=== PATIENT | male | born 1970 | race Caucasian/White ===

== ENCOUNTER → 2017-05-22 | Outpatient (CLI) | payer BC ==
[~2017-05-22] MED LIST: AMPH20CA3 PO; IBUP-103 PO
[2017-05-22 14:03] LABS: ALBUMIN 3.7 gm/dl (3.4-5.0); BLOOD UREA NITROGEN 17 mg/dl (7-18); CALCIUM 8.7 mg/dl (8.5-10.1); CARBON DIOXIDE 28 mmol/L (21-32); GLUCOSE 90 mg/dl (70-99); PHOSPHORUS 3.6 mg/dl (2.5-4.9); POTASSIUM 4.1 mmol/L (3.5-5.1); SODIUM 139 mmol/L (136-145)
== END | disposition home or self-care (01) ==
LOC: C.LAB1850 12:03
PROVIDERS: ATTEND Internal Medicine Nephrology
DX: N20.0 Calculus of kidney (principal)

== ENCOUNTER → 2017-09-11 | Outpatient (CLI) | payer BC ==
--- NOTE | 2017-09-11 09:42 | DIAGNOSTIC IMAGING REPORT ---
ABDOMEN AND PELVIS CT WITHOUT CONTRAST CT DOSE: 1037.77 mGy.cm HISTORY: Right flank pain. Assess for stone. TECHNIQUE: Multiaxial CT images of the abdomen and pelvis were performed without the use of intravenous and oral contrast according to the standard department stone protocol. A dose lowering technique was utilized adhering to the principles of ALARA. COMPARISON STUDY: Abdomen and pelvis CT 05/11/2015. FINDINGS: Stable bone island within the left iliac wing. Degenerative changes within the lumbar spine are again noted. Tiny fat-containing umbilical hernia. Suboptimal evaluation for bowel pathology due to the lack of intravenous and oral contrast. However, there is no definite bowel wall thickening or obstruction. Normal appendix. The unenhanced liver, spleen, gallbladder, pancreas, and adrenal glands are unremarkable. No retroperitoneal lymphadenopathy. 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 This remains unchanged. Lobular soft tissue density within the left pelvic sidewall and left seminal vesicle remain stable. 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 Right-sided nephrolithiasis again noted with the largest stone within the lower pole measuring 3 mm.. No hydronephrosis. The visualized right ureter is normal in course and caliber. The bladder is unremarkable. IMPRESSION: 1. No significant change compared to the prior study. No acute process within the abdomen or pelvis. 2. No bowel wall thickening or obstruction. 3. Normal appendix. 4. Right-sided nephrolithiasis. No ureteral stones. No hydronephrosis. 5. Developmental/congenital anomalies as described above including left renal agenesis. Electronically signed by: Boubacar Ceron M.D. 09/11/2017 9:40 AM Dictated Date/Time: 09/11/2017 9:28 AM
[2017-09-11 10:13] LABS: BLOOD UREA NITROGEN 16 mg/dl (7-18); CALCIUM 8.9 mg/dl (8.5-10.1); CARBON DIOXIDE 28 mmol/L (21-32); CREATININE 0.98 mg/dl (0.60-1.40); GLUCOSE 113 mg/dl (70-99); POTASSIUM 3.8 mmol/L (3.5-5.1); SODIUM 137 mmol/L (136-145)
== END | disposition home or self-care (01) ==
LOC: C.CTS 08:48
DX: N20.0 Calculus of kidney (principal); Q60.0 Renal agenesis, unilateral

== ENCOUNTER 2017-12-03 20:16 | Emergency (ER) | payer BC ==
[~2017-12-03] VITALS: Ht 177.8 cm; Wt 82.7 kg
[2017-12-03 20:18] VITALS: TEMP 36.5; Ht 177.8 cm; Wt 82.7 kg
[2017-12-03] MEDS ORDERED: OXYCODONE HCL IR 5 MG TAB (IMMEDIATE RELEASE) PO STA (20:38)
[2017-12-03] MEDS ORDERED: LMS250 PO (21:04)
[2017-12-03] MEDS ORDERED: IBUP-103 PO (21:08)
[2017-12-03] MEDS ORDERED: LIDOCAINE 1% BUFFERED INJ 20 ML VIAL ONE (21:26)
[2017-12-03] MEDS ORDERED: BUPIVACAINE 0.25% 30 ML VIAL ONE (21:26)
[2017-12-03] MEDS ORDERED: AMPH20CA3 PO (21:49)
[2017-12-03 22:11] VITALS: BP 142/81; PULSE 60; O2SAT 97
[2017-12-03] MEDS ORDERED: OXYC-90 PO (22:25)
--- NOTE | 2017-12-03 22:26 | EMERGENCY ROOM VISIT NOTE ---
History First contact with patient: 20:24 Chief Complaint: FINGER PAIN Stated Complaint: SMASHED LEFT THUMB History of Present Illness The patient is a 47 year old male who presents to the Emergency Room with complaints of an injury to his left thumb. The patient states that approximately 7 hours ago, he smashed his left thumb in a truck door. He was seen at the [facility] emergency department and reports that they gave him IV antibiotics, a tetanus shot, cleaned his wound and bandaged it. He states that orthopedics was unable to evaluate him at that time and they recommended he follow-up on Thursday. The patient is not from that area and would rather follow- up here. He states his pain is returned and was an 12/04. He was prescribed antibiotics but nothing for pain. He has not taken any medication for his pain. He denies any numbness or weakness. Review of Systems A complete 6 point review of systems was reviewed with the patient with pertinent positives and negatives as per history of present illness. All else were negative. Past Medical/Surgical History Medical Problems: (1) Anxiety (2) Attention deficit hyperactivity disorder (3) congenital absence of kidney (4) Migraines Surgical Problems: (1) H/O hernia repair Family History Cancer Diabetes mellitus Gallbladder disease Heart disease Kidney disease Kidney stones Social History Smoking Status: Never Smoker Alcohol Use: none Marital Status: Housing Status: lives with family Occupation Status: employed, other Current/Historical Medications Scheduled Amphetamine-Dextroamphetamine 20MG (Adderall Xr 20MG), 20 MG PO DAILY Terbinafine (Terbinafine HCl), 250 MG PO DAILY Scheduled PRN Ibuprofen Tab (Advil), 800 MG PO Q6H PRN for Pain Oxycodone Ir (Roxicodone Ir), 1-2 TAB PO Q4H PRN for Pain Physical Exam Vital Signs Date Time Temp Pulse Resp B/P (MAP) Pulse Ox O2 Delivery O2 Flow Rate FiO2 12/03/17 22:11 60 20 142/81 97 Room Air 12/03/17 20:18 36.5 78 20 140/77 98 Room Air Physical Exam VITALS: Vitals are noted on the nurse's note and reviewed by myself. Vital signs stable. GENERAL: This is a 47-year-old male, in no acute distress, nondiaphoretic, well- developed well-nourished. LEFT THUMB: There is significant soft tissue injury to the anterior aspect of the distal phalanx. The fingernail is displaced laterally. There is exposed bone. There is no active bleeding. Capillary refill intact. Full range of motion. NEURO: Patient was alert and oriented to person place and time. Distal sensation intact of the left thumb. Medical Decision & Procedures Medications Administered Medications (Trade) Dose Ordered Sig/Kyaw Route Start Time Stop Time Status Last Admin Dose Admin Oxycodone HCl (Roxicodone Immediate Rel Tab) 5 mg NOW STAT PO 12/03/17 20:38 12/03/17 20:39 DC 12/03/17 20:47 5 MG Cephalexin Monohydrate (Keflex Cap) 500 mg NOW ONCE PO 12/03/17 22:30 12/03/17 22:31 DC 12/03/17 22:30 500 MG Oxycodone HCl (Roxicodone Immediate Rel 5MG Home Pack) 1 homepack UD ONCE PO 12/03/17 22:30 12/03/17 22:31 DC 12/03/17 22:30 1 HOMEPACK Procedure Verbal consent was obtained to perform the procedure. Digital block was performed using a one-to-one solution of 1% buffered lidocaine and bupivacaine. The patient tolerated the procedure well. No complications were met. Medical Decision The patient was evaluated as above. I did review x-rays from the previous ER. They reveal a comminuted fracture of the distal phalanx with overlying soft tissue injury. Fortunately patient had already been treated with IV antibiotics and Adacel. I spoke with orthopedics, Dr. Menendez, who agreed to evaluate the patient. He did perform repair of this open fracture/ laceration. Please see his dictation for these details. The patient already has a prescription for Keflex. He was given 1 dose for tonight. He was given a prescription and home pack of pain medication. He verbalized understanding of my assessment and treatment plan and was discharged home in good condition. [place] Drug Monitoring Program Search Results: patient reviewed within database, no issues identified Medication Reconcilliation Current Medication List: was personally reviewed by me Blood Pressure Screening Patient's blood pressure: Elevated blood pressure Blood pressure disposition: Elevated BP felt to be situational Impression Primary Impression: Open fracture of finger, distal phalanx Departure Information Dispostion Home / Self-Care Condition GOOD Prescriptions Oxycodone Ir (Roxicodone Ir) 5 Mg Tab 1-2 TAB PO Q4H Y for Pain, #15 TAB For Initial Treatment Prov: Kathryn Marshall .DIRK 12/03/17 Referrals Du Vallejo Jr,D.O. (PCP) Patient Instructions [facility] Additional Instructions Call the number [phone] tomorrow morning to schedule a follow-up Thursday or Thursday. You have been prescribed OxyIR to be used for pain control. Take 1-2 tablets every 4-6 hours as needed for pain. This is a narcotic medication. You cannot drive or consume alcohol while on this medicine. This medicine should only be used for pain that cannot be controlled with hpbv-aiu-bunysoy pain medicines. For pain control, you can use the following dyve-imy-vakuwwo medicines (if >12 yo): - Regular strength (325mg/tab) Tylenol (acetaminophen) 2 tabs every 4-6 hours as needed. Do not exceed 12 tablets in a 24 hour period. Avoid taking more than 4 grams (4000 mg) of Tylenol per day. This includes any other sources of acetaminophen you may take on a regular basis. - Regular strength (200 mg/tab) Advil (ibuprofen) 1-2 tabs every 4-6 hours as needed. Do not exceed a dose of 3200 mg per day. Make sure to take the antibiotics (Keflex) as prescribed. Problem Qualifiers Primary Impression: Open fracture of finger, distal phalanx Encounter type: initial encounter Finger: thumb Fracture alignment: displaced Laterality: left Qualified Codes: S62.522B - Displaced fracture of distal phalanx of left thumb, initial encounter for open fracture
[2017-12-03] MEDS ORDERED: OXYCODONE IR HOME PACK PO ONE (22:30)
[2017-12-03] MEDS ORDERED: CEPHALEXIN MONOHYDRATE 250 MG CAP PO ONE (22:30)
--- NOTE | 2017-12-03 23:04 | HISTORY & PHYSICAL EXAMINATION ---
DATE OF ADMISSION: 12/03/2017 HISTORY OF PRESENT ILLNESS: The patient is a right hand dominant male who crushed his left thumb in an 18-jha truck door when someone closed it inadvertently on his hand. He was seen in an outside Emergency Department at [place] and was irrigated and debrided and was told that he could only get surgery on Thursday. Nothing further was done. There was no realignment. No debridement. He was given a reported dose of IV antibiotics and a prescription for some oral antibiotics. He denies any major allergies.He then decided to come here to be treated. PAST MEDICAL HISTORY: Remarkable for anxiety, attention deficit disorder, congenital absence of kidney, history of migraines, history of hernia repair. PREADMISSION MEDICATIONS: Include Adderall p.r.n., Advil. ALLERGIES: None. PHYSICAL EXAMINATION: VITAL SIGNS: Stable. He is afebrile. EXTREMITIES: Physical exam reveals injury limited to the left nondominant thumb. There is an open wound dorsally with displaced nail, retained on the ulnar side. The thumb tip is viable. He has intact EPL and FPL function. He has been blocked at request by the PA in the ER.Permission obtained verbally to treat and he is appreciative. The wound is inspected and irrigated. The nail remnant is removed and cleaned and debrided. Some loose bone fragments are removed. The nail plate is crushed with multiple stellate areas and tissue loss. It is all irrigated. The bed is now viable.he was informed of potential deformity and growth disturbance. The nail again is cleansed and trimmed and then inserted underneath the eponychial fold and attached with five 3-0 nylon sutures acting as a splint for the bone and for the nail plate. The appearance of the thumb is grossly normal with the exception of some superficial skin loss and the sutures. The EPL and FPL function is intact. He has done based on the block. I also augmented the block with some 2% plain lidocaine, about 10 mL. The wound was irrigated with Betadine and saline. The wound was then dressed with Xeroform and light gauze dressing. He was advised to cover the thumb with condom and some Saran wrap to keep it clean and dry when he showers. He will follow up on Thursday for an appointment for wound check. He may also at that point in time be placed in a splint depending on how swollen and painful and tender the thumb is. He understands to return if there are any issues with fever, chills, nausea, vomiting, etc. Discharge medication and process per ER PA. He will follow up again on Thursday or Thursday next week. DALE
== END 2017-12-03 22:42 | disposition home or self-care (01) ==
LOC: C.EDB 20:17
DX: S62.522B Displaced fracture of distal phalanx of left thumb, initial encounter for open fracture (principal); W23.0XXD Caught, crushed, jammed, or pinched between moving objects, subsequent encounter; F41.9 Anxiety disorder, unspecified; F90.9 Attention-deficit hyperactivity disorder, unspecified type; Q60.0 Renal agenesis, unilateral; Z80.9 Family history of malignant neoplasm, unspecified; Z83.3 Family history of diabetes mellitus; Z83.79 Family history of other diseases of the digestive system; Z84.1 Family history of disorders of kidney and ureter; Z79.899 Other long term (current) drug therapy

== ENCOUNTER 2019-05-31 18:53 | Observation (INO) ==
--- OUTSIDE RECORDS SUMMARY | 2019-05-31 18:54 | External Medical Summary | Continuity of Care Document ---
:1970 Author Name Pat Bustillos, Provider Address Unavailable Unavailable , Care Team Providers Name Role Phone Unavailable Unavailable Unavailable Patel Clemens DO Unavailable [email or web address] NEGIN GONZALES JR Unavailable Unavailable Unavailable Unavailable Unavailable Problems Anxiety (300.00) (F41.9) Anxiety disorder due to medical condition (293.84) (F06.4) Disc degeneration, lumbar (722.52) (M51.36) Attention-deficit/hyperactivity disorder (314.01) (F90.9) Backache (724.5) (M54.9) Migraine headache (346.90) (G43.909) Acquired solitary kidney (V45.73) (Z90.5) Nephrolithiasis (592.0) (N20.0) Vitamin D deficiency (268.9) (E55.9) Allergies and Adverse Reactions No Known Drug Allergies (Allergy) Medications Adderall XR 20 MG Oral Capsule Extended Release 24 Ramone r; TAKE 1 CAPSULE DAILY. , M.D. Refills: 0 Advil 200 MG Oral Tablet; TAKE DIRECTED. , M.D. Refills: 0 Tylenol 325 MG Oral Tablet; TAKE 1 TO 2 TABLETS EVERY 4 HOUR S NEEDED , M.D. Refills: 0 Aleve TABS , M.D. Refills: 0 Vitamin D (Ergocalciferol) 1.25 MG (5000 0 UT) Oral Capsule; TAKE 1 CAPSULE WEEKLY. DO Patel Clemens Start: 22-May-2017 Quantity: 6 Refills: 1 Procedures History of Hernia Repair Status: Complet ed History of Tympanic Membrane Repair - Right Ear Status: Completed History of Nasal Septal Deviation Repair Status: Completed Immunizations Immunizations not documented Family History Mother Family history of Diabetes Mellitus (V18.0) Status: Active Family history of Pacemaker Permanent Placement Status: Acti ve Unknown Family Member Family history of Multiple Sclerosis Status: Active Com ments: Family History Grandmother Family history of lung cancer (V16.1) (Z80.1) Status: Active Grandfather Family history of prostate cancer (V16.42) (Z80.42) Status: Active Family history of cardiac disorder (V17.49) (Z82.49) Status: Active uncle Family history of prostate cancer (V16.42) (Z80.42) Status: Active Brother Family history of kidney stones (V18.69) (Z84.1) Status: Act faye Social History - Smoking Status Smoker. current status unknown Plan of Treatment Planned Observations Planned Goals not documented Results No Known Results Results not documented Encounters Appointment; Patel Clemens DO 21-Aug-2017 12:30 Encounter Diagnosis: Problem not documented
--- OUTSIDE RECORDS SUMMARY | 2019-05-31 18:55 | External Medical Summary | Continuity of Care Document ---
:1970 Author Name Pat Bustillos, Provider Address Unavailable Unavailable , Care Team Providers Name Role Phone Unavailable Unavailable Unavailable Patel Clemens DO Unavailable [email or web address] NEGIN GONZALES JR Unavailable Unavailable Unavailable [...]
[2019-05-31] MEDS ORDERED: ASPIRIN CHEW 324 MG PO STA (19:06)
[2019-05-31] MEDS: NITROGLYCERIN SL 0.4 MG/TAB TAB SL PRN ×2 (19:14→20:24)
[2019-05-31] MEDS ORDERED: SODIUM CHLORIDE 0.9% 1000ML 1,000 ML IV SCH (19:15)
--- NOTE | 2019-05-31 19:23 | XRay Report ---
SINGLE VIEW CHEST CLINICAL HISTORY: Atypical chest pain. FINDINGS: 2 AP, portable, upright chest radiographs are compared to study dated 06/06/2013 and correla daniela with chest CT dated 05/11/2015. The examination is degraded by portable technique and patient rota tion. The cardiomediastinal silhouette is unremarkable. An accessory azygous fissure is incidentally noted. The lungs and pleural spaces are clear. No pneumothorax is seen. The bony thorax is grossly in tact. IMPRESSION: No active disease in the chest. ACT 112: Negative or not required by law. Electronically signed by: Bryson Loredo M.D. 05/31/2019 7:22 PM
[2019-05-31 19:28] LABS: Basophils # (auto) 0.03 K/uL (0-0.2); Basophils % (auto) 0.3 %; Eosinophils # (auto) 0.34 K/uL (0-0.5); Eosinophils % (auto) 3.3 %; Hemoglobin 14.9 g/dL (14.0-18.0); Immature Granulocytes # (auto) 0.01 K/uL (0.00-0.02); Immature Granulocytes % (auto) 0.1 %; Lymphocytes # (auto) 3.05 K/uL (1.2-3.4); Mean Corpuscular Hemoglobin 29.7 pg (25-34); Mean Corpuscular Hgb Conc 34.7 g/dL (32-36); Mean Corpuscular Volume 85.7 fL (80-100); Mean Platelet Volume 10.6 fL (7.4-10.4); Monocytes # (auto) 0.72 K/uL (0.11-0.59); Monocytes % (auto) 7.1 %; Neutrophils % (auto) 59.2 %; Platelet Count 245 K/uL (130-400); RDW Coefficient of Variation 13.7 % (11.5-14.5); RDW Standard Deviation 42.9 fL (36.4-46.3); Red Blood Count 5.02 M/uL (4.7-6.1); White Blood Count 10.15 K/uL (4.8-10.8)
[2019-05-31 19:38] LABS: INR 0.9 (0.9-1.1); Partial Thromboplastin Time 28.1 Seconds (21.0-31.0); Prothrombin Time 9.7 Seconds (9.0-12.0)
[2019-05-31 19:49] LABS: Alanine Aminotransferase 32 U/L (12-78); Albumin Level 3.8 gm/dl (3.4-5.0); Aspartate Aminotransferase 18 U/L (15-37); BUN Creatinine Ratio 16.9 (10-20); Blood Urea Nitrogen 16 mg/dl (7-18); Calcium 8.6 mg/dl (8.5-10.1); Carbon Dioxide 25 mmol/L (21-32); Chloride 107 mmol/L (98-107); Creatinine Clr Calc Pharmacy 94.1 ml/min; Est GFR (African American) 105.1; Est GFR (Non-African American) 90.7; Glucose 81 mg/dl (70-99); Lipase 209 U/L (73-393); Potassium 3.8 mmol/L (3.5-5.1); Sodium 138 mmol/L (136-145)
[2019-05-31 19:56] LABS: Albumin Globulin Ratio 1.1 (0.9-2); Alkaline Phosphatase 126 U/L (45-117); Bilirubin,Total 0.2 mg/dl (0.2-1); Globulin 3.5 gm/dl (2.5-4.0); Total Protein 7.3 gm/dl (6.4-8.2); Troponin I < 0.015 ng/ml (0-0.045)
[2019-05-31] MEDS ORDERED: GI COCKTAIL ED USE PO ONE (20:42)
[2019-05-31] MEDS ORDERED: MoRPHine SULFATE 10 MG/ML CARP/VIAL IV STA (20:42)
[2019-05-31 21:19] LABS: D Dimer < 190 ug/L FEU (0-500)
[2019-05-31] MEDS ORDERED: IOVERSOL 100ml IV PRN (22:50)
--- NOTE | 2019-05-31 23:01 | History & Physical Report ---
Date of Service May 31, 2019 Assessment & Plan (1) Chest pain, precordial: Mr. Julian Jernigan is a 48 y/o male with past medical hx of left sided renal agenesis, current smoker, who presented to [facility] ED with CC of Chest pain. - Initial trop negative, ECG unremarkable no signs of ischemia/IN - Risk factors include Age for male, Smoking - Also history suggests he has undiagnosed sleep apnea, but no hx of HTN or DM or significant family hx; definitely recommend outpatient sleep study - Will trend trops and order AM Stress Test - Concerning that he has unintentional weight loss of 30 pounds in 4 months and with pain that doesn't appear cardiac on current eval and insidiously worsening, will get a CT Chest w/contrast to rule out mass lesion. - Differential that pain could be esophageal such as a spasm, or gastritis, or esophageal malignancy, esophagitis and he might benefit from outpatient EGD - He notes this doesn't feel like typical heart burn, but perhaps his mucosa has changed from squamous to columnar where he doesn't have typical GERD pain anymore from an undiagnosed Clancy's esophagus. His smoking dose raise red flags. - Pain not reproducible on exam and not improved with morphine - Glucose here 81, no indication for A1C but considered this since weight loss, but denies any diabetic symptoms - Will check ESR, CRP for possible inflammatory cause, viral cough in family, but no signs of pericarditis on ECG - Will check lipids and TSH in AM with BMP, CBC. - Hemodynamically stable Code: Full Code DVT ppx: Lovenox 40mg SQ q24h FENGI: NPO since Stress in the AM Admit: Obs, med/surg tele (2) Unintentional weight loss: As above (3) Agenesis of left kidney: Noted in hx Could have other congenital malformations not yet manifested but considered less likely (4) Cigarette smoker one half pack a day or less: Smoking cessation provided and should continue throughout stay. Noted 25 year hx of 0.5 packs for 12.5 pack year approximately history. History of Present Illness Chief Complaint: Chest Pain Primary Care Provider: Du Vallejo Jr, DO Mr. Julian Jernigan is a 48 y/o male with past medical hx of left sided renal agenesis, current smoker, who presented to [facility] ED with CC of Chest pain. He notes onset of pain started about 6 weeks ago and has been intermittent. He states pain is very localized "like the shape of a rectangle" to his left chest just lateral to sternal area. He characterizes as a weight and tightness. He notes that onset episodes lasted for 10-15 seconds and were 3 times a day. Then episodes became more frequent (8-15 times per day) and lasted longer in duration (hours) and also have become more intense. Today, he came to the hospital because his pain become more severe and his co-workers told him to come here or they were going to call EMS. Pain does not wake him up from sleep, ever. He denies shortness of breath, nausea, vomiting, diaphoresis, lightheadedness with pains. He notes his family has had a viral cough going around. 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 The pain will come on at rest usually. Not worsened with meals, does not feel like previous heart burn. He notes no cardiac disease in first degree relatives, mom had a pacemaker placed in her 60s. 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 He does not he snores a lot and has to sleep on the cough because his kicked him out of the bedroom. He has 2 children, one with DM1. He also notes an unintentional 30 lb weight loss since November 2018, (about 4 months ago). He denies any prior cardiac hx, denies cocaine use, occasional alcohol. Occasional cough but no hemoptysis. No problems with swallowing solids or liquids. Chest pain has not improved or relieved with Morphine 6mg IV, received ASA 324mg PO in ED. He noted a couple occasional episodes of pain radiating to left post-auricular area and left posterior arm but he didn't think this was contributed by his CP as this was very infrequent maybe 1-2 episodes with the numerous ones per day. 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 Beliefs That Will Affect Care: None Current Living Situation: Family Other Information That Helps Us Care for You: No Feels Safe at Home: Yes Safety Concerns: Feels Safe At This Time Smoking Status: Current every day smoker Tobacco Type: cigarettes ; Cigarettes Per Day: 10 ; Do You Dip or Chew Tobacco: No ; Second Hand Exposure: No ; Tobacco Cessation Education Requested by Patient: No Hx Alcohol Use: No Hx Substance Use: No Review of Systems Review of Systems: All systems reviewed & are unremarkable except as noted in HPI & below Constitutional: + weight loss; no fever and no chills Eyes: no diplopia and no worsening vision Ear, Nose, Mouth, Throat: no nasal congestion, no epistaxis and no sore throat Respiratory: no dyspnea and no pain on inspiration Cardiovascular: + chest pain; no dyspnea at rest Gastrointestinal: no abdominal pain, no nausea and no vomiting Genitourinary: no dysuria and no difficulty urinating Musculoskeletal: no back pain and no swelling Integumentary: no rash Neurologic: no numbness, no syncope and no confusion Endocrine: no polydipsia, no polyphagia and no polyuria Physical Exam Constitutional: WD/WN, vitals as above cooperative and comfortable Eyes: PERRL, conjunctivae normal, anicteric sclerae ENMT: external ear and nose normal, oropharynx normal Neck: normal visual inspection and trachea midline Respiratory: normal respiratory effort, lungs clear to auscultation Cardiovascular: RRR, no murmur, no edema Vessels: no carotid bruit did have difficulty palpating carotid pulses; chest pain not reproducible with palpation Gastrointestinal (Abdomen): Percussion/Palpation: abdomen soft; abdomen nontender, no guarding and abdomen not rigid Musculoskeletal: Head/Neck/Chest: normocephalic and head atraumatic Skin: no rashes, warm and dry Neurologic: moves all extremities and awake Psychiatric: Orientation: alert and oriented x 3 Mood: + anxious mood Results & Data Vital Signs (Past 12 Hours) Vital Signs Temp Pulse Resp BP Pulse Ox 05/31/19 22:29 60 99 05/31/19 22:00 64 18 122/83 97 05/31/19 21:30 66 24 127/95 99 05/31/19 21:11 99 05/31/19 21:00 65 27 H 101/64 99 05/31/19 20:50 72 13 95 05/31/19 20:41 67 18 97 05/31/19 20:34 73 20 120/59 L 98 05/31/19 20:30 78 16 05/31/19 20:20 70 18 05/31/19 20:11 62 13 05/31/19 20:00 73 19 05/31/19 19:50 66 13 05/31/19 19:41 66 15 05/31/19 19:30 68 12 05/31/19 19:20 77 05/31/19 19:18 74 13 05/31/19 19:16 75 17 122/68 05/31/19 18:55 36.3 C L 87 16 130/79 98 Code Status & VTE Plan Code Status Full Code VTE Prophylaxis Plan VTE Prophylaxis will be ordered: Yes Supervising Physician Co-Signing Physician Notes Attending addendum: I have physically seen this patient, have supervised the medical residents activities, and agree with the H&P unless as otherwise noted. Assessment and Plan: Precordial chest pain- The patient will be admitted to telemetry for serial cardiac enzymes, serial EKG's, cardiac rhythm monitoring and a 2-D echocardiogram with Dopplers. Aspirin 81 mg daily. If negative work-up, patient will need a stress test prior to discharge. If stress test is negative, then patient would would need to have GI work-up. Unintentional 30 pound weight loss- There was concern regarding a possible underlying malignancy as cause, taken the Patient's tobacco abuse history. However, fortunately patient, the CT of chest was negative for lung cancer. Tobacco use disorder- Patient was counseled on tobacco cessation. Addendum (Blank) Addendum May 31, 2019 22:59 Resident Activity Tracking Resident Involvement: Resident Care Provided Care Provided: [facility] Medicine
--- NOTE | 2019-05-31 23:05 | CT Scan Report ---
CT SCAN OF THE CHEST WITH IV CONTRAST CLINICAL HISTORY: Atypical chest pain. Unintended weight loss. COMPARISON STUDY: Chest CT dated 05/11/2015. Chest x-ray dated 05/31/2019. TECHNIQUE: Following the IV administration of 94 cc of Optiray 320, CT scan of the thorax was perform ed from the thoracic inlet to the upper abdomen. Images are reviewed in the axial, sagittal, and adam nal planes. IV contrast was administered without complication. A dose lowering technique was utilize d adhering to the principles of ALARA. CT DOSE: 436.20 mGy.cm FINDINGS: Thyroid: Imaged portions of the thyroid gland are normal in size and attenuation. Thoracic aorta: The thoracic aorta is normal in caliber and demonstrates standard 3-vessel arch anato my. No dissection is seen. Pulmonary vasculature: The pulmonary trunk is normal in caliber. There are no filling defects identif ied in the central pulmonary vessels to indicate pulmonary embolus. Note that this examination was no t protocoled for evaluation of the pulmonary arteries. Heart: The heart is normal in size and without pericardial effusion. Lungs and pleural spaces: There is no airspace consolidation or pleural effusion. Dependent atelectas is is incidentally noted. There is a 3 mm right middle lobe pulmonary nodule seen on image #[id number]. This is unchanged from 2016 and of doubtful significance. An accessory azygous fissure is incidentally no daniela. The trachea and central airways are clear. Mediastinum: There is no mediastinal lymphadenopathy. Pascale: Clear. Axillae: There is no axillary lymphadenopathy. Upper abdomen: Partially visualized upper abdominal viscera is within normal limits. Skeletal structures: No lytic or blastic bony lesions are seen. IMPRESSION: No active disease in the chest. ACT 112: Negative or not required by law. Electronically signed by: Bryson Loredo M.D. 05/31/2019 11:04 PM
[2019-05-31 23:10] LABS: C Reactive Protein 0.92 mg/dl (0-0.29); Chol HDL Ratio 5; Cholesterol 202 mg/dl (0-200); HDL Cholesterol 41 mg/dl; LDL Cholesterol Calculated 89 mg/dl; Triglycerides 361 mg/dl (0-150); VLDL Cholesterol 72 mg/dl
[2019-05-31] MEDS ORDERED: NITROGLYCERIN SL 0.4 MG/TAB TAB SL PRN (23:56)
[2019-05-31] MEDS ORDERED: MAGNESIUM HYDROXIDE SUSP 30 ML UDC PO PRN (23:56)
[2019-05-31] MEDS ORDERED: ACETAMINOPHEN 325 MG TAB PO PRN (23:56)
[2019-05-31] MEDS ORDERED: ONDANSETRON INJ 2 MG/ML 2 ML VIAL IV PRN (23:56)
[2019-05-31] MEDS ORDERED: POLYETHYLENE (MIRALAX) 17 GM PACK PO PRN (23:56)
[2019-05-31] MEDS ORDERED: ALUMINUM/MAGNESIUM SUSP 30 ML UDC PO PRN (23:56)
--- NOTE | 2019-06-01 00:11 | Emergency Department Note ---
Entered by Helen Dunn acting as a scribe for Tesfaye Rendon DO History of Present Illness General Chief complaint: Cardiac Assessment Stated complaint: SEVERE CHEST PAIN, PRESSURE Source: patient History of Present Illness Onset (ago): week(s) (6) Location: chest Pain Consistency: + other (worsening episodes) Quality: + other (heaviness) Associated symptoms: + other (lightheadness); no diaphoresis, no nausea/vomiting and no shortness of breath The patient is a 48 year old male who presents to the Emergency Room with complaints of worsening episodes of chest heaviness beginning 6 weeks ago. The patient reports the episodes were initially 3-4 times per day and lasted a few minutes. He states the episodes now occur up to 8 times a day and last up to several hours. He notes the episodes usually occur when he is resting. The patient reports nothing seems to make the pain start or stop. The patient states the pain started 5 hours ago today. He notes it extends down his left arm. The patient denies nausea, vomiting, shortness of breath, and sweating. He notes occasional lightheadedness with the episodes. The patient denies heavy lifting at his work. He reports a family history of diabetes and MIs. He notes his grandfather in his 60s. He states his mother has a weak heart. Home Medications Home Medications Medication Instructions Recorded Confirmed Type dextroamphetamine-amphetamine 20 mg PO DAILY 01/01/18 05/31/19 History [Adderall XR] Allergies Allergy/AdvReac Type Severity Reaction Status Date / Time No Known Allergies Allergy Verified 05/31/19 19:42 Past Med/Surg History Medical History History of migraine headaches Pain of left thumb Surgical History History of hernia repair Family History Other Diabetes Myocardial infarction Social History Preferred Language: Khmer Communication Ability: Effective Transportation Modeler Required: No Beliefs That Will Affect Care: None Current Living Situation: Family Other Information That Helps Us Care for You: No Feels Safe at Home: Yes Safety Concerns: Feels Safe At This Time Smoking Status: Current every day smoker Tobacco Type: cigarettes ; Cigarettes Per Day: 10 ; Do You Dip or Chew Tobacco: No ; Second Hand Exposure: No ; Tobacco Cessation Education Requested by Patient: No Hx Alcohol Use: No Hx Substance Use: No Review of Systems See HPI for pertinent positives & negatives. and A total of 10 systems reviewed and were otherwise negative Physical Exam Vital Signs Vital Signs - 24 hr 05/31/19 18:55 05/31/19 19:16 05/31/19 19:18 Temperature 36.3 C L Temperature Source Oral Pulse Rate 87 75 74 Pulse Rate from SpO2 Sensor Respiratory Rate 16 17 13 Respiratory Effort / Characteristics Non-Labored Spontaneous Respiratory Depth Normal Blood Pressure 130/79 122/68 Blood Pressure Mean 96 89 Pulse Oximetry 98 Oxygen Delivery Method Room Air Sepsis Recent Fever Within 48 Hours No Sepsis New/Unexplained Change in Mental Status No Sepsis Action Taken by Nursing No Action Required 05/31/19 19:20 05/31/19 19:30 05/31/19 19:41 Temperature Temperature Source Pulse Rate 77 68 66 Pulse Rate from SpO2 Sensor Respiratory Rate 12 15 Respiratory Effort / Characteristics Respiratory Depth Blood Pressure Blood Pressure Mean Pulse Oximetry Oxygen Delivery Method Sepsis Recent Fever Within 48 Hours Sepsis New/Unexplained Change in Mental Status Sepsis Action Taken by Nursing 05/31/19 19:50 05/31/19 20:00 05/31/19 20:11 Temperature Temperature Source Pulse Rate 66 73 62 Pulse Rate from SpO2 Sensor Respiratory Rate 13 19 13 Respiratory Effort / Characteristics Respiratory Depth Blood Pressure Blood Pressure Mean Pulse Oximetry Oxygen Delivery Method Sepsis Recent Fever Within 48 Hours Sepsis New/Unexplained Change in Mental Status Sepsis Action Taken by Nursing 05/31/19 20:20 05/31/19 20:30 05/31/19 20:34 Temperature Temperature Source Pulse Rate 70 78 73 Pulse Rate from SpO2 Sensor 75 Respiratory Rate 18 16 20 Respiratory Effort / Characteristics Respiratory Depth Blood Pressure 120/59 L Blood Pressure Mean 87 Pulse Oximetry 98 Oxygen Delivery Method Sepsis Recent Fever Within 48 Hours Sepsis New/Unexplained Change in Mental Status Sepsis Action Taken by Nursing 05/31/19 20:41 05/31/19 20:50 05/31/19 21:00 Temperature Temperature Source Pulse Rate 67 72 65 Pulse Rate from SpO2 Sensor 66 72 65 Respiratory Rate 18 13 27 H Respiratory Effort / Characteristics Respiratory Depth Blood Pressure 101/64 Blood Pressure Mean 75 Pulse Oximetry 97 95 99 Oxygen Delivery Method Room Air Sepsis Recent Fever Within 48 Hours Sepsis New/Unexplained Change in Mental Status Sepsis Action Taken by Nursing 05/31/19 21:11 05/31/19 21:30 05/31/19 22:00 Temperature Temperature Source Pulse Rate 66 64 Pulse Rate from SpO2 Sensor 63 67 62 Respiratory Rate 24 18 Respiratory Effort / Characteristics Respiratory Depth Blood Pressure 127/95 122/83 Blood Pressure Mean 100 91 Pulse Oximetry 99 99 97 Oxygen Delivery Method Room Air Sepsis Recent Fever Within 48 Hours Sepsis New/Unexplained Change in Mental Status Sepsis Action Taken by Nursing 05/31/19 22:29 Temperature Temperature Source Pulse Rate 60 Pulse Rate from SpO2 Sensor Respiratory Rate Respiratory Effort / Characteristics Respiratory Depth Blood Pressure Blood Pressure Mean Pulse Oximetry 99 Oxygen Delivery Method Room Air Sepsis Recent Fever Within 48 Hours Sepsis New/Unexplained Change in Mental Status Sepsis Action Taken by Nursing GENERAL: Sitting up in bed, holding left chest wall, non-toxic, minimal distress EYE EXAM: normal conjunctiva OROPHARYNX: no exudate, no erythema, lips, buccal mucosa, and tongue normal and mucous membranes are moist NECK: supple, no nuchal rigidity, no adenopathy, non-tender LUNGS: Clear to auscultation. Normal chest wall mechanics HEART: no murmurs, S1 normal and S2 normal ABDOMEN: abdomen soft, non-tender, normo-active bowel sounds, no masses, no rebound or guarding. BACK: Back is symmetrical on inspection and there is no deformity, no midline tenderness, no CVA tenderness. SKIN: no rashes and no bruising UPPER EXTREMITIES: upper extremities are grossly normal. LOWER EXTREMITIES: No pitting edema. Calves equal bilaterally. NEURO EXAM: Normal sensorium, cranial nerves II-XII grossly intact, normal speech, no gross weakness of arms, no gross weakness of legs. Course Course ED COURSE: Vital signs were reviewed and showed hypertension situationally. The patients medical record was reviewed The above diagnostic studies were performed and reviewed. ED treatments and interventions as stated above. 0: The patient was evaluated in room C12B. A complete history and physical examination was performed. 2034: Upon reevaluation, the patient's chest pain has worsened. He will be given morphine. 2099: Upon reevaluation, the patient's pain has improved with a GI cocktail. 2129: Upon reevaluation, the patient is requesting more pain medication. I discussed my findings with the patient and he understands and agrees with the treatment plan. Based on the patients age, coexisting illnesses, exam and lab findings the decision to treat as an inpatient was made. I reviewed the patient's case with Dr. [facility] Hospitalist who will evaluate the patient for further management. The patient remained stable while under my care. The patient will be evaluated for further management. Administered Medications Ioversol (Optiray 320 100ml) 100 ml IV ONCE PRN PRN Reason: Interaction Checking Stop: 06/04/19 22:49 Last Admin: 05/31/19 22:51 Dose: 94 ml Documented by: [id number] Discontinued Medications Al Hydrox/Mg Hydrox/Simethicone () 1 dose PO ONE ONE Stop: 05/31/19 20:43 Last Admin: 05/31/19 20:47 Dose: 1 dose Documented by: [id number] Aspirin (Aspirin) 324 mg PO NOW STA Stop: 05/31/19 19:07 Last Admin: 05/31/19 19:14 Dose: 324 mg Documented by: [id number] Sodium Chloride (Nss 1000ml) 1,000 mls @ 999 mls/hr IV .Q1H1M LETTY Stop: 05/31/19 20:15 Last Infusion: 05/31/19 20:18 Dose: 0 mls/hr Documented by: [id number] Admin: 05/31/19 19:14 Dose: 999 mls/hr Documented by: [id number] Morphine Sulfate (Morphine Sulfate) 6 mg IV NOW STA Stop: 05/31/19 20:43 Last Admin: 05/31/19 21:04 Dose: 6 mg Documented by: [id number] Nitroglycerin (Nitrostat) 0.4 mg SL UD PRN PRN Reason: Chest Pain Stop: 06/30/19 19:05 Last Admin: 05/31/19 20:24 Dose: 0.4 mg Documented by: [id number] Medical Decision Making Differential Diagnosis Differential diagnoses includes but is not limited to acute coronary syndrome, myocardial infarction, pericarditis, pulmonary embolus, aortic dissection, pneumonia, pneumothorax, musculoskeletal, shingles, esophageal. Medical Records Attestation: I reviewed the patient's medical records. Home Medications Current Medication List: was personally reviewed by me Laboratory Data Attestation: I reviewed the patient's lab results. Result diagrams: 05/31/19 19:09 05/31/19 19:09 Lab Results 05/31/19 05/31/19 05/31/19 Range/Units 19:09 19:09 19:09 WBC 10.15 (4.8-10.8) K/uL RBC 5.02 (4.7-6.1) M/uL Hgb 14.9 (14.0-18.0) g/dL Hct 43.0 (42-52) % MCV 85.7 (80-100) fL MCH 29.7 (25-34) pg MCHC 34.7 (32-36) g/dL RDW Std Deviation 42.9 (36.4-46.3) fL RDW Coeff of Ross 13.7 (11.5-14.5) % Plt Count 245 (130-400) K/uL MPV 10.6 H (7.4-10.4) fL Immature Gran % (Auto) 0.1 % Neut % (Auto) 59.2 % Lymph % (Auto) 30.0 % Barber % (Auto) 7.1 % Eos % (Auto) 3.3 % Baso % (Auto) 0.3 % Immature Gran # (Auto) 0.01 (0.00-0.02) K/uL Neut # (Auto) 6.00 (1.4-6.5) K/uL Lymph # (Auto) 3.05 (1.2-3.4) K/uL Barber # (Auto) 0.72 H (0.11-0.59) K/uL Eos # (Auto) 0.34 (0-0.5) K/uL Baso # (Auto) 0.03 (0-0.2) K/uL ESR (0-14) mm/hr PT 9.7 (9.0-12.0) Seconds INR 0.9 (0.9-1.1) APTT 28.1 (21.0-31.0) Seconds PTT Ratio 1.0 D-Dimer (0-500) ug/L FEU Sodium 138 (136-145) mmol/L Potassium 3.8 (3.5-5.1) mmol/L Chloride 107 (98-107) mmol/L Carbon Dioxide 25 (21-32) mmol/L Anion Gap 6.0 (3-11) BUN 16 (7-18) mg/dl Creatinine 0.97 (0.6-1.4) mg/dl Est Cr Clr Drug Dosing 94.1 ml/min Est GFR ( Amer) 105.1 Est GFR (Non-Af Amer) 90.7 BUN/Creatinine Ratio 16.9 (10-20) Glucose 81 (70-99) mg/dl Calcium 8.6 (8.5-10.1) mg/dl Total Bilirubin 0.2 (0.2-1) mg/dl AST 18 (15-37) U/L ALT 32 (12-78) U/L Alkaline Phosphatase 126 H (45-117) U/L Troponin I < 0.015 (0-0.045) ng/ml C-Reactive Protein 0.92 H (0-0.29) mg/dl Total Protein 7.3 (6.4-8.2) gm/dl Albumin 3.8 (3.4-5.0) gm/dl Globulin 3.5 (2.5-4.0) gm/dl Albumin/Globulin Ratio 1.1 (0.9-2) Triglycerides 361 H (0-150) mg/dl Cholesterol 202 H (0-200) mg/dl LDL Cholesterol, Calc 89 mg/dl VLDL Cholesterol, Calc 72 mg/dl HDL Cholesterol 41 mg/dl Cholesterol/HDL Ratio 5 Lipase 209 (73-393) U/L Specimen Hemolysis 05/31/19 05/31/19 Range/Units 19:09 19:09 WBC (4.8-10.8) K/uL RBC (4.7-6.1) M/uL Hgb (14.0-18.0) g/dL Hct (42-52) % MCV (80-100) fL MCH (25-34) pg MCHC (32-36) g/dL RDW Std Deviation (36.4-46.3) fL RDW Coeff of Ross (11.5-14.5) % Plt Count (130-400) K/uL MPV (7.4-10.4) fL Immature Gran % (Auto) % Neut % (Auto) % Lymph % (Auto) % Barber % (Auto) % Eos % (Auto) % Baso % (Auto) % Immature Gran # (Auto) (0.00-0.02) K/uL Neut # (Auto) (1.4-6.5) K/uL Lymph # (Auto) (1.2-3.4) K/uL Barber # (Auto) (0.11-0.59) K/uL Eos # (Auto) (0-0.5) K/uL Baso # (Auto) (0-0.2) K/uL ESR 14 (0-14) mm/hr PT (9.0-12.0) Seconds INR (0.9-1.1) APTT (21.0-31.0) Seconds PTT Ratio D-Dimer < 190 (0-500) ug/L FEU Sodium (136-145) mmol/L Potassium (3.5-5.1) mmol/L Chloride (98-107) mmol/L Carbon Dioxide (21-32) mmol/L Anion Gap (3-11) BUN (7-18) mg/dl Creatinine (0.6-1.4) mg/dl Est Cr Clr Drug Dosing ml/min Est GFR ( Amer) Est GFR (Non-Af Amer) BUN/Creatinine Ratio (10-20) Glucose (70-99) mg/dl Calcium (8.5-10.1) mg/dl Total Bilirubin (0.2-1) mg/dl AST (15-37) U/L ALT (12-78) U/L Alkaline Phosphatase (45-117) U/L Troponin I (0-0.045) ng/ml C-Reactive Protein (0-0.29) mg/dl Total Protein (6.4-8.2) gm/dl Albumin (3.4-5.0) gm/dl Globulin (2.5-4.0) gm/dl Albumin/Globulin Ratio (0.9-2) Triglycerides (0-150) mg/dl Cholesterol (0-200) mg/dl LDL Cholesterol, Calc mg/dl VLDL Cholesterol, Calc mg/dl HDL Cholesterol mg/dl Cholesterol/HDL Ratio Lipase (73-393) U/L Specimen Hemolysis Imaging Data Radiologist's Impression: Radiology results as stated below per my review and the radiologist's interpretation: SINGLE VIEW CHEST CLINICAL HISTORY: Atypical chest pain. FINDINGS: 2 AP, portable, upright chest radiographs are compared to study dated 06/06/2013 and correlated with chest CT dated 05/11/2015. The examination is degraded by portable technique and patient rotation. The cardiomediastinal silhouette is unremarkable. An accessory azygous fissure is incidentally noted. The lungs and pleural spaces are clear. No pneumothorax is seen. The bony thorax is grossly intact. IMPRESSION: No active disease in the chest. ACT 112: Negative or not required by law. Electronically signed by: Bryson Loredo M.D. 05/31/2019 7:22 PM ECG Data Attestation: I personally reviewed and interpreted this ECG as follows: Indication: + chest pain Rate (beats per minute): 82 Rhythm: + sinus rhythm ECG Intervals/blocks: + Normal QT-c ECG Caro: + Left axis deviation ECG ST segments: + ST elevation (Anterior) ECG Findings: + Other (TX depression in anterior and lateral leads ); no PVCs Comparison ECG Date: from (02/20/2017) Change: no significant change Blood Pressure Blood Pressure Findings: Normal blood pressure MDM Narrative Patient is a 48-year-old male that presents the ER for precordial chest pain which is been worsening over the past 6 weeks. Initially it started for several minutes and now has been getting longer longer. Today lasted several hours. He admits to a tightness in a rectangular shape just left of the sternum. Notes no true exacerbating or remitting factors. He is a smoker. Does have a history of MIs in his family in the 50s to 60s. IV was established blood work was obtained. Labs showed no significant leukocytosis or anemia. BMP was unremark able. D-dimer was negative INR was unremarkable. LFTs bilirubin and troponin was negative. Lipase was normal. Chest x-ray was unremarkable. Patient was given nitro with no significant improvement. GI cocktail did not help either. Patient was given morphine with improvement of his pain. Repeat EKG was unchanged. Patient was updated and discussed with the hospitalist for observation. Impression & Plan Chest pain, precordial, Elevated alkaline phosphatase level Discharge Plan Visit Data *Final* Discharge Date/Time: 05/31/19 23:23 Chief Complaint: Cardiac Assessment Stated Complaint: SEVERE CHEST PAIN, PRESSURE ED Provider: Tesfaye Rendon Discharge Problem: Chest pain, precordial, Elevated alkaline phosphatase level Patient Disposition: Admitted As Inpatient Discharge Instructions Interventions: ED Discharge Assessment Last Done: 05/31/19 23:23 The scribe's documentation has been prepared under my direction and personally reviewed by me in its entirety. I confirm that the note above accurately reflects all work, treatment, procedures, and medical decision making performed by me.
[2019-06-01] MEDS ORDERED: FAMOTIDINE 20 MG in SYRINGE 3 ML IV ONE (00:30)
[2019-06-01 07:28] LABS: Basophils # (auto) 0.03 K/uL (0-0.2); Basophils % (auto) 0.4 %; Eosinophils # (auto) 0.36 K/uL (0-0.5); Eosinophils % (auto) 4.2 %; Hematocrit (blood only) 41.8 % (42-52); Hemoglobin 13.8 g/dL (14.0-18.0); Immature Granulocytes # (auto) 0.02 K/uL (0.00-0.02); Immature Granulocytes % (auto) 0.2 %; Lymphocytes # (auto) 2.05 K/uL (1.2-3.4); Lymphocytes % (auto) 24.1 %; Mean Corpuscular Hemoglobin 29.4 pg (25-34); Mean Corpuscular Volume 88.9 fL (80-100); Mean Platelet Volume 10.9 fL (7.4-10.4); Monocytes # (auto) 0.63 K/uL (0.11-0.59); Monocytes % (auto) 7.4 %; Neutrophils # (auto) 5.41 K/uL (1.4-6.5); Neutrophils % (auto) 63.7 %; Platelet Count 189 K/uL (130-400); RDW Coefficient of Variation 13.9 % (11.5-14.5); RDW Standard Deviation 45.8 fL (36.4-46.3)
[2019-06-01 08:06] LABS: BUN Creatinine Ratio 16.5 (10-20); Calcium 8.7 mg/dl (8.5-10.1); Creatinine Clr Calc Pharmacy 107.4 ml/min; Est GFR (African American) 117.8; Est GFR (Non-African American) 101.6; Potassium 4.2 mmol/L (3.5-5.1)
[2019-06-01 08:17] LABS: Thyroid Stimulating Hormone 1.26 uIu/ml (0.300-4.500)
[2019-06-01] MEDS ORDERED: FAMOTIDINE 20 MG in SYRINGE 3 ML IV SCH (09:00)
[2019-06-01] MEDS ORDERED: ENOXAPARIN INJ 40 MG/0.4 ML SYR SQ SCH (09:00)
--- NOTE | 2019-06-01 12:43 | XCELERA ---
[id number] \\[id number]
--- NOTE | 2019-06-01 12:50 | Discharge Summary ---
Date of Service June 01, 2019 Admission HPI Per Admitting Provider Mr. Julian Jernigan is a 48 y/o male with past medical hx of left sided renal agenesis, current smoker, who presented to [facility] ED with CC of Chest pain. He notes onset of pain started about 6 weeks ago and has been intermittent. He states pain is very localized "like the shape of a rectangle" to his left chest just lateral to sternal area. He characterizes as a weight and tightness. He notes that onset episodes lasted for 10-15 seconds and were 3 times a day. Then episodes became more frequent (8-15 times per day) and lasted longer in duration (hours) and also have become more intense. Today, he came to the hospital because his pain become more severe and his co-workers told him to come here or they were going to call EMS. Pain does not wake him up from sleep, ever. He denies shortness of breath, nausea, vomiting, diaphoresis, lightheadedness with pains. He notes his family has had a viral cough going around. 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 The pain will come on at rest usually. Not worsened with meals, does not feel like previous heart burn. He notes no cardiac disease in first degree relatives, mom had a pacemaker placed in her 60s. 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 He does not he snores a lot and has to sleep on the cough because his kicked him out of the bedroom. He has 2 children, one with DM1. He also notes an unintentional 30 lb weight loss since November 2018, (about 4 months ago). He denies any prior cardiac hx, denies cocaine use, occasional alcohol. Occasional cough but no hemoptysis. No problems with swallowing solids or liquids. Chest pain has not improved or relieved with Morphine 6mg IV, received ASA 324mg PO in ED. He noted a couple occasional episodes of pain radiating to left post-auricular area and left posterior arm but he didn't think this was contributed by his CP as this was very infrequent maybe 1-2 episodes with the numerous ones per day. Principal Diagnosis chest pain Discharge Exam Constitutional WD/WN, vitals as above Respiratory normal respiratory effort, lungs clear to auscultation Cardiovascular RRR, no murmur, no edema Gastrointestinal (Abdomen) Inspection/Auscultation: abdomen normal to inspection and normal bowel sounds; abdomen not distended Percussion/Palpation: abdomen soft; abdomen nontender Musculoskeletal no cyanosis or clubbing, extremities motor strength 5/5 Skin no rashes, warm and dry Neurologic moves all extremities and awake Psychiatric A+Ox3, euthymic affect Discharge Data Allergies Allergy/AdvReac Type Severity Reaction Status Date / Time No Known Allergies Allergy Verified 05/31/19 19:42 Consultations 05/31/19 21:31 ED Decision to Admit Stat Ordered Studies 05/31/19 22:31 CT chest w con Urgent Hospital Course (1) Chest pain, precordial: Mr. Julian Jernigan is a 48 y/o male with past medical hx of left sided renal agenesis, current smoker, who presented to [facility] ED with CC of Chest pain. - Initial trop negative, ECG unremarkable no signs of ischemia/TX - Risk factors include Age for male, Smoking - Also history suggests he has undiagnosed sleep apnea, but no hx of HTN or DM or significant family hx; recommend outpatient sleep study - Trops negative x 3, stress echo was normal, normal EF and no wall motion abnormalities - Pain not reproducible on exam and not improved with morphine - ESR wnl, very mild CRP elevation at 0.92, TSH normal - EGD 2/ to assess for GI source of pain showed normal esophagus, gastritis, small hiatal hernia - biopsies taken. GI will fu with patient for routine colonoscopy screening - will continue pantoprazole for now - may relieve symptoms if non erosive reflux is contributing. - Discussed with patient that he can take Tylenol for pain relief but would avoid NSAIDs due to only having one kidney (2) Unintentional weight loss: 30 pounds in the last 4 months follow up with pcp (3) Agenesis of left kidney: Noted in hx Could have other congenital malformations not yet manifested but considered less likely (4) Cigarette smoker one half pack a day or less: Smoking cessation education provided Noted 25 year hx of 0.5 packs for 12.5 pack year approximately history. (5) Hyperlipidemia: Triglycerides were 361, total cholesterol was 202, LDL 89, HDL 41 Discussed risks of elevated lipids and possible interventions as well as risk of future vascular event Patient's Pooled Risk cohort ASCVD risk is 7.6%, he is not interested in initiating statin therapy at this time. Education given on lifestyle interventions. Total Time Total Time Spent Total Time Spent (In Minutes): greater than 30 minutes Discharge Plan Discharge Items Patient Disposition: Home - Self-Care Reason For Visit: CHEST PAIN Discharge Diagnosis: Chest pain Activity: Resume your previous activity Driving/Machine Use: Resume 1 day after discharge Non-emergency contact: Primary Care Provider Call non-emergency contact if: you have any medication questions and your symptoms worsen Follow-up/Referrals: Sammy Washington DO [Physician] - (within 2 weeks ) Du Vallejo Jr, DO [Primary Care Provider] - (follow up within one week ) Diet: Heart Healthy Addtl Attending Provider Instructions: (1) Chest pain, precordial: - Your troponins were normal on all three checks. When this lab is abnormal, it can indicate injury to the heart such as due to lack of oxygen during a heart attack. - Your stress test was normal - CT scan of your chest was normal. - Endoscopy showed normal esophagus, gastritis (inflammation of stomach lining), and small hiatal hernia - Please follow up with your primary care provider within a week. - I recommend you continue the proton pump inhibitor for now to see if it gives you any relief. You may be experiencing non erosive reflux that could cause pain or spasm not seen on endoscopy which could be eased with pantoprazole. It may also help to ease the gastritis - Given your history of snoring, please ask your doctor about an outpatient sleep study to assess for sleep apnea. (2) Hyperlipidemia - Your cholesterol was 202, triglycerides were 361 which are elevated - Please see attached information on lifestyle changes you can make to lower your cholesterol and triglycerides - Please discuss further with your doctor (3) Cigarette smoker one half pack a day or less: - Please discuss further smoking cessation strategies with your doctor if you feel you cannot quit smoking on your own DO NOT DRIVE FOR 24 HOURS AFTER YOUR ENDOSCOPY. Please tell your doctor right away or return to the ED if you have fever or abdominal pain or signs of bleeding such as black tarry stools or coffee ground appearing vomit. Pending Studies at Discharge: Yes Studies:: biopsies taken during endoscopy Stand-Alone Forms: My [facility], Smoking Cessation Medications and DC Order Prescriptions: New pantoprazole 40 mg tablet,delayed release (DR/EC) 40 mg PO DAILY Qty: 30 RF: 0 Continued dextroamphetamine-amphetamine [Adderall XR] 20 mg Capsule,Extended Release 24hr 20 mg PO DAILY RF: 0 Discharge Orders: Discharge Order (Routine); Ordered 06/02/19 Ordered By: Emmie Cardoza/Other Patient Handouts: Hiatal Hernia, Gastritis, Cholesterol Lifestyle Changes Admission Data Admit Date/Time: 05/31/19 22:57 Attending Provider: Nii Valle Admit Provider: Shubham Armstrong Primary Care Provider: Du Vallejo Jr Other Providers: Nii Valle ; Lazaro West ; Sammy Washington Other Interventions: Discharge Summary Assessment (RN) Last Done: 06/02/19 14:36 Supervising Physician Co-Signing Physician Notes I supervised Emmie Carr NP on this patient's care. I examined the patient today independently of her. I discussed the plan of care with her with the plan being as written in her note except for any following changes/exceptions: None. Patient's stress test was normal. As such, it is unlikely his chest pain represents cardiac cause. His EGD did show moderate gastritis, making gastric ca use more likely. He however seemed very dissatisfied with this possibility and reported we had done "nothing" for him. Emmie discussed PPI with him, but he was upset and felt we had "wasted his time and money." He left AMA after being counseled not to drive after his sedation for the EGD. Coding Level of Care Code D/C Day Management >30 mins Diagnoses Chest pain, precordial R07.2 Unintentional weight loss R63.4 Agenesis of left kidney Q60.0 Cigarette smoker one half pack a day or less F17.210 Hyperlipidemia E78.5
--- NOTE | 2019-06-01 14:13 | Electrocardiogram Report ---
Test Reason : Blood Pressure : / mmHG Vent. Rate : 082 BPM Atrial Rate : 082 BPM P-R Int : 146 ms QRS Dur : 106 ms QT Int : 374 ms P-R-T Axes : 069 -40 047 degrees QTc Int : 436 ms Normal sinus rhythm Possible Left atrial enlargement Left axis deviation Incomplete right bundle branch block Abnormal ECG When compared with ECG of 20-FEB-2017 10:44, No significant change was found Confirmed by Bakari Ferro ([id number]) on 06/01/2019 2:12:57 PM Referred By: REFERRED SELF Confirmed By:Bakari Ferro
--- NOTE | 2019-06-01 14:14 | Electrocardiogram Report ---
Test Reason : Blood Pressure : / mmHG Vent. Rate : 074 BPM Atrial Rate : 074 BPM P-R Int : 152 ms QRS Dur : 094 ms QT Int : 404 ms P-R-T Axes : 068 -34 037 degrees QTc Int : 448 ms Normal sinus rhythm Possible Left atrial enlargement Left axis deviation Abnormal ECG When compared with ECG of 31-MAY-2019 18:59, (unconfirmed) T wave amplitude has decreased in Anterior leads Confirmed by Bakari Ferro ([id number]) on 06/01/2019 2:14:19 PM Referred By: REFERRED SELF Confirmed By:Bakari Ferro
[2019-06-01] MEDS: PANTOprazole 40 MG TAB PO SCH (14:23)
--- NOTE | 2019-06-01 16:22 | Hospitalist Progress Note ---
Date of Service June 01, 2019 Assessment & Plan (1) Chest pain, precordial: Mr. Julian Jernigan is a 48 y/o male with past medical hx of left sided renal agenesis, current smoker, who presented to [facility] ED with CC of Chest pain. - Also history suggests he has undiagnosed sleep apnea, but no hx of HTN or DM or significant family hx; recommend outpatient sleep study - Trops negative x 3, stress echo was normal, normal EF and no wall motion abnormalities - Pain not reproducible on exam and not improved with morphine - ESR wnl, very mild CRP elevation at 0.92, TSH normal - consulted GI - will have endoscopy tomorrow to assess for GI sources of chest pain (2) Unintentional weight loss: 30 pounds in the last 4 months follow up with pcp (3) Agenesis of left kidney: Noted in hx Could have other congenital malformations not yet manifested but considered less likely (4) Cigarette smoker one half pack a day or less: Smoking cessation counseling provided Noted 25 year hx of 0.5 packs for 12.5 pack year approximately history. (5) Hyperlipidemia: Triglycerides were 361, total cholesterol was 202, LDL 89, HDL 41 Discussed risks of elevated lipids and possible interventions as well as risk of future vascular event Patient's Pooled Risk cohort ASCVD risk is 7.6%, he is not interested in initiating statin therapy at this time. Education given on lifestyle interventions. (6) DVT prophylaxis: enoxaparin - will hold for scope tomorrow Subjective Mr. Jernigan has not had chest pain today. He tolerated his stress test, no abnormalities. He did some reading on esophageal spasms and really feels it fits very closely with what he has been experiencing. ROS Constitutional: no chills, aches, sweats or fever Respiratory: no sob,cough, sputum, or wheezing Cardiac: no chest pain, palpitations, edema, orthopnea or lightheadedness GI: no abdominal pain, nausea, vomiting, diarrhea or constipation : no dysuria or hesitancy Extremities: no joint pain or weakness Skin: no rash All other systems reviewed and negative Physical Exam Physical Exam: General: no distress Eyes: normal inspection, PERLL Respiratory: chest non tender, clear to auscultation, normal breath sounds, no respiratory distress, no accessory muscle use Cardiac: regular rate and rhythm, no rub or gallop, no murmur, no edema, no jvd GI/: active bowel sounds, no abd pain or tenderness, soft, non distended Extremities: normal range of motion, normal strength, non tender Neuro/Psych: alert and oriented x 3, normal mood and affect Skin: normal color, dry Results & Data ([facility]) Vital Signs (Past 12 Hours) Vital Signs Temp Pulse Pulse Resp BP Pulse Ox 06/01/19 15:00 36.5 C 66 18 106/66 97 06/01/19 11:00 36.6 C 60 18 112/67 97 06/01/19 08:00 54 L 06/01/19 07:00 36.7 C 63 18 113/71 98 PG Care Time/CCT Total # of Minutes Spent Total Time Spent with Patient: Total time spent is greater than 50% in coordination of care (as documented) at patient's floor/unit and/or counseling patient: Coding Level of Care Code 37060 Subseq Hosp Care Lvl 2 Diagnoses Chest pain, precordial R07.2 Unintentional weight loss R63.4 Agenesis of left kidney Q60.0 Cigarette smoker one half pack a day or less F17.210 Hyperlipidemia E78.5 DVT prophylaxis Z29.9
--- NOTE | 2019-06-01 16:30 | Gastrointestinal Consultation ---
Date of Consultation June 01, 2019 Assessment & Plan (1) Unintentional weight loss: (2) Atypical chest pain: ddx includes esophagitis vs. hiatal hernia vs. JAVI vs. malignancy Recs: 1. keep NPO post midnight 2. plan for EGD tomorrow to further evaluate 3. agree with protonix daily for now Thank you for allowing me to participate in the care of this patient. History of Present Illness Attending Physician: Nii Valle MD 48 yo male with hx smoking, left sided renal agenesis here with chest pain. GI consulted for atypical causes of chest pain, as he was ruled out for any cardiac etiology during this hospitalization. Patient notes for the last 6 weeks he has been having episodes of precordial chest pains that are intense, burning and sharp, 10/10, nonradiating, not affected by food intake nor bowel movements, never had these pains before. Pains will last up to 5-6 minutes, but have been lasting longer and getting worse lately. He denies nausea/vomiting but notes he gets heartburn from time to time, used to have it more severely but says he drinks apple cider vinegar which helps him. He denies family hx gastric cancer, colon cancer, esophageal cancer, notes that he is a current smoker pack per day for 25 years. Denies dysphagia, odynophagia. No prior EGD nor colonoscopy. He notes 30 lbs unintentional weight loss in the last 4 months as well. Labs reviewed, notable for mild anemia and elevated CRP. Allergies Allergy/AdvReac Type Severity Reaction Status Date / Time No Known Allergies Allergy Verified 05/31/19 19:42 Home Medications Home Medications Medication Instructions Recorded Confirmed Type dextroamphetamine-amphetamine 20 mg PO DAILY 01/01/18 05/31/19 History [Adderall XR] pantoprazole 40 mg PO DAILY #30 tab 06/01/19 Rx Patient History Medical History History of migraine headaches Pain of left thumb Surgical History History of hernia repair Family History Other Diabetes Myocardial infarction Social History Preferred Language: Croatian Communication Ability: Effective Intelligence Officer Required: No Beliefs That Will Affect Care: None Current Living Situation: Family Other Information That Helps Us Care for You: No Feels Safe at Home: Yes Safety Concerns: Feels Safe At This Time Smoking Status: Current every day smoker Tobacco Type: cigarettes ; Cigarettes Per Day: 10 ; Do You Dip or Chew Tobacco: No ; Second Hand Exposure: No ; Tobacco Cessation Education Requested by Patient: No Hx Alcohol Use: No Hx Substance Use: No Review of Systems Constitutional: no fever, no chills and no weight loss Eyes: as per Subjective / HPI Ear, Nose, Mouth, Throat: as per Subjective / HPI Respiratory: no dyspnea and no dyspnea on exertion Cardiovascular: no chest pain and no palpitations Gastrointestinal: as per Subjective / HPI Musculoskeletal: no joint pain and no swelling Integumentary: no rash and no lesions Neurologic: no numbness and no paresthesia Psychiatric: no depression and no anxiety Endocrine: no fatigue Hematologic / Lymphatic: no easy bleeding and no easy bruising Physical Exam Constitutional: WD/WN, vitals as above Eyes: EOM intact bilaterally Neck: normal visual inspection Respiratory: normal respiratory effort, lungs clear to auscultation Cardiovascular: RRR, no murmur, no edema Gastrointestinal (Abdomen): Inspection/Auscultation: abdomen normal to inspection; abdomen not distended Percussion/Palpation: abdomen soft; abdomen nontender and no hepatosplenomegaly Musculoskeletal: Extremities: no cyanosis Gait: normal gait Skin: no rashes, warm and dry Neurologic: moves all extremities Psychiatric: A+Ox3, euthymic affect Results & Data Vital Signs (Past 12 Hours) Vital Signs Temp Pulse Pulse Resp BP Pulse Ox 06/01/19 15:00 36.5 C 66 18 106/66 97 06/01/19 11:00 36.6 C 60 18 112/67 97 06/01/19 08:00 54 L 06/01/19 07:00 36.7 C 63 18 113/71 98 PG Care Time/CCT Total # of Minutes Spent Total Time Spent with Patient: Total time spent is greater than 50% in coordination of care (as documented) at patient's floor/unit and/or counseling patient: Coding Level of Care Code 23886 Inpt Consult Level 4 Diagnoses Unintentional weight loss R63.4 Atypical chest pain R07.89
--- NOTE | 2019-06-02 03:45 | Billing Data ---
Date of Service June 02, 2019 Coding Level of Care Code 10595 OBS Care - Level 3
[2019-06-02] MEDS: PANTOprazole 40 MG TAB PO SCH (09:00)
--- NOTE | 2019-06-02 09:58 | History & Physical Bridge Note ---
Date of Service June 02, 2019 History & Physical Bridge Note I have examined the patient, reviewed the History & Physical and in the interval since the performance of the History & Physical I have noted the following changes of clinical significance: no changes noted Proceed with EGD. risks/benefits and procedure discussed with patient, who agrees to proceed
--- NOTE | 2019-06-02 11:38 | Anesthesiology Consultation ---
Date of Service June 02, 2019 Assessment & Plan Chart Review Chart Review: Acceptable Risk for Surgery and Patient NOT seen in Pre Admission Testing Consults Requested none ASA ASA3 Proposed Anesthesia Anesthesia Type: MAC Risk / Benefits Reviewed With: PT / POA / Parent / Guardian, Accepts Plan and Informed Consent Obtained History Surgery Operation Date: 06/02/19 16:00 Proposed Procedures p Esophagogastroduodenoscopy Dr. Billy Cervantes MD Height/Weight Height: 5 ft 10 in Weight: 79.6 kg Allergies Allergy/AdvReac Type Severity Reaction Status Date / Time No Known Allergies Allergy Verified 05/31/19 19:42 Medications Home Medications Medication Instructions Recorded Confirmed Last Taken dextroamphetamine-amphetamine 20 mg PO DAILY 01/01/18 05/31/19 01/01/18 [Adderall XR] pantoprazole 40 mg PO DAILY #30 tab 06/01/19 Unknown Active Medications Generic Name Dose Route Start Last Admin Trade Name Freq PRN Reason Stop Dose Admin Acetaminophen 650 mg 05/31/19 23:56 06/01/19 09:47 Tylenol PO 06/30/19 23:55 650 mg Q4H PRN Administration Pain or Fever Al Hydrox/Mg Hydrox/Simethicone 15 ml 05/31/19 23:56 06/01/19 21:06 Maalox PO 06/30/19 23:55 15 ml Q4H PRN Administration Dyspepsia Enoxaparin Sodium 40 mg 06/01/19 09:00 06/01/19 08:50 Lovenox SQ 07/01/19 08:59 Not Given Q24H LETTY Ioversol 100 ml 05/31/19 22:50 05/31/19 22:51 Optiray 320 100ml IV 06/04/19 22:49 94 ml ONCE PRN Administration Interaction Checking Pantoprazole Sodium 40 mg 06/01/19 13:30 06/01/19 14:23 Protonix PO 07/01/19 13:29 40 mg QAM LETTY Administration NPO Date Last Intake of Fluids: 06/01/19 Time Last Intake of Fluids: 22:00 Date Last Intake of Solids: 06/01/19 Time Last Intake of Solids: 19:00 Past Medical History Medical History History of migraine headaches Pain of left thumb Exercise / Class Metabolic Activity II 4-5 Yardwork/Stairs/Walk up hill Past Family History Family History Other Diabetes Myocardial infarction Past Surgical History Surgical History History of hernia repair Past Anesthesia History No Hx of Anesthesia Complications and No Family Hx of Anesthesia Complications History of PONV No Hx of PONV and No Hx of Motion Sickness Social History Smoking Status: Current every day smoker tobacco type: cigarettes Smoking cigarettes per day: 10 Do You Dip or Chew Tobacco: No Hx Alcohol Use: No Alcohol type: hard liquor alcohol intake frequency: a few times a month Hx Substance Use: No substance use type: does not use Physical Exam Vital Signs Last Vital Signs Temp 36.7 C 06/02/19 11:14 Pulse 53 L 06/02/19 11:14 Resp 18 06/02/19 11:14 BP 116/74 06/02/19 11:14 Pulse Ox 100 06/02/19 11:14 Constitutional not obese ENMT Mouth: no dentition abnormality Thyromental Distance: > or= 3.5 Finger Breadths Mallampati Class: II Neck normal visual inspection, trachea midline and + facial hair; neck extension not limited Respiratory normal respiratory effort Auscultation: lungs clear to auscultation bilaterally Cardiovascular Rate/Rhythm: regular rate and regular rhythm Heart Sounds: no murmur Vessels: no carotid bruit Musculoskeletal Spine: normal cervical ROM Extremities: extremities normal to inspection Neurologic moves all extremities Motor/Sensory: no sensory deficit Psychiatric Orientation: alert and oriented x 3 Testing Laboratory Results 06/01/19 07:02 06/01/19 07:02 PT 9.7 Seconds (9.0-12.0) 05/31/19 19:09 INR 0.9 (0.9-1.1) 05/31/19 19:09 APTT 28.1 Seconds (21.0-31.0) 05/31/19 19:09
[2019-06-02] MEDS ORDERED: ATROPINE SULFATE 0.1 MG/ML 10ML SYR IV PRN (11:40)
[2019-06-02] MEDS ORDERED: ePHEDrine sulfate 50 MG/ML AMP IV PRN (11:40)
[2019-06-02] MEDS ORDERED: PROPOFOL IV EMULSION 10 MG/ML 20 ML VIAL IV ONE ×2 (12:06→12:38)
[2019-06-02] MEDS ORDERED: LIDOCAINE HCL 2% 2 ML VIAL/AMP(20MG/ML) INFIL ONE (12:06)
--- NOTE | 2019-06-02 12:57 | Anesthesiology Progress Note ---
Date of Service June 02, 2019 Anesthesia Post Procedure Vital Signs Vital Signs: Temp Pulse Pulse Resp BP Pulse Ox 06/02/19 12:40 52 L 16 100/62 99 06/02/19 11:14 36.7 C 53 L 18 116/74 100 06/02/19 07:41 36.7 C 54 L 18 118/74 97 06/01/19 23:33 36.6 C 56 L 16 99/62 L 97 06/01/19 15:00 36.5 C 66 18 106/66 97 Pain Intensity Chest: Pain Intensity: 8 Head: Pain Intensity: 10 Transfer of Care Handoff Completed per policy Notes Mental Status: alert / awake / arousable Patient Amnestic to Procedure: Yes Nausea / Vomiting: adequately controlled Pain: adequately controlled Airway Patency, RR, SpO2: stable & adequate BP & HR: stable & adequate Hydration State: stable & adequate Anesthetic Complications: no major complications apparent
--- NOTE | 2019-06-02 13:30 | GI REPORT ---
Patient Name: Julian Jernigan Procedure Date: 06/02/2019 12:07 PM Date of : 1970 Admit Type: Inpatient Age: 48 Gender: Male Attending MD: Juan Jose Cervantes MD Procedure: Upper GI endoscopy Providers: Juan Jose Cervantes MD Referring MD: Referred Self Indications: Epigastric abdominal pain, Unexplained chest pain, Chest pain (non cardiac) Medicines: Monitored Anesthesia Care Complications: No immediate complications. Estimated blood loss: None. Estimated Blood Loss: Estimated blood loss: none. Procedure: Pre-Anesthesia Assessment: - Prior Anticoagulants: The patient has taken no previous anticoagulant or antiplatelet agents. - ASA Grade Assessment: III - A patient with severe systemic disease. After obtaining informed consent, the endoscope was passed under direct vision. Throughout the procedure, the patient's blood pressure, pulse, and oxygen saturations were monitored continuously. The Endoscope was introduced through the mouth, and advanced to the second part of duodenum. The upper GI endoscopy was accomplished without difficulty. The patient tolerated the procedure well. Findings: The examined esophagus was normal. Biopsies were taken with a cold forceps for histology from the proximal and distal esophagus. Estimated blood loss: none. A small hiatal hernia was present. Localized moderate inflammation characterized by erosions and erythema was found in the gastric antrum. Biopsies were taken with a cold forceps for Helicobacter pylori testing. Estimated blood loss: none. The duodenal bulb and second portion of the duodenum were normal. Impression: - Normal esophagus. Biopsied. - Small hiatal hernia. - Gastritis. Biopsied. - Normal duodenal bulb and second portion of the duodenum. Recommendation: - Return patient to hospital street for ongoing care. - Resume previous diet today. - Await pathology results. -screening colonoscopy as an outpatient, my office will call to schedule. Juan Jose Cervantes MD 06/02/2019 1:30:03 PM This report has been signed electronically. Note Initiated On: 06/02/2019 12:07 PM Number of Addenda: 0 I attest to the content of the Intraoperative Record and orders documented therein, exceptions below {[id number]}
--- NOTE | 2019-06-02 13:31 | Communication Note ---
Date of Service: June 02, 2019 GI brief note EGD findings: small hiatal hernia, normal esophagus, biopsied. gastritis, biopsied. recs: 1. f/u path results 2. screening colonoscopy as an outpatient, my office will call to schedule 3. rest as per primary team Juan Jose Cervantes MD Gastroenterology
== END 2019-06-02 16:39 | disposition home or self-care (01) ==
LOC: 2N 18:53 → ED 18:53 → SUATTDRO 22:57 → 2N 23:23